=== PATIENT | female | born 1955 | race African-American/Black ===

== ENCOUNTER 2017-07-23 21:35 | Inpatient (IN) | payer MEDICAID ==
[~2017-07-23] VITALS: Ht 162.6 cm; Wt 66.4 kg
[~2017-07-23 21:35] MED LIST: CALC0.5C10 PO; CALC667C PO; FAMO20TA8 PO; Midodrine Hcl PO
[2017-07-23] MEDS ORDERED: ONDANSETRON HCL 4MG/2ML VIAL IV STA (23:32)
[2017-07-24 00:44] LABS: HEMATOCRIT. 33.7 % (36.0-48.0); HEMOGLOBIN. 10.9 g/dL (12.0-16.0); MEAN CORPUSCULAR HEMOGLOBIN 30.2 pg (28.0-32.0); MEAN CORPUSCULAR VOLUME 93.8 fL (81.0-99.0); MEAN PLATELET VOLUME 8.1 fl (7.4-10.4); PLATELET 186 x1000/uL (130-400); RED BLOOD CELL COUNT 3.59 mill/uL (4.2-5.4); RED CELL DISTRIBUTION WIDTH 15.4 % (11.6-14.6)
[2017-07-24 00:48] LABS: CHLORIDE 111 mEq/L (98-107)
[2017-07-24 00:58] LABS: CARBON DIOXIDE 23 mEq/L (21-32)
[2017-07-24] MEDS ORDERED: METOCLOPRAMIDE HCL 10MG/2ML VIAL IV ONE (01:30)
[2017-07-24 02:40] LABS: PLATELET ESTIMATE NORMAL
[2017-07-24 08:30] VITALS: BP 180/77
[2017-07-24] MEDS ORDERED: DEXTROSE 50% WATER 50ML SYRINGE IV PRN (09:15)
[2017-07-24] MEDS: ONDANSETRON HCL 4MG/2ML VIAL IV PRN (09:36)
[2017-07-24 09:54] VITALS: BP 180/77
[2017-07-24] MEDS: INSULIN LISPRO 100 UNITS/ML SUBCUT SCH ×3 (11:53→21:00)
[2017-07-24] MEDS: BLOOD SUGAR DIAGNOSTIC STRIP TEST SCH ×3 (11:53→21:00)
[2017-07-24 12:00] VITALS: BP 163/64
[2017-07-24 12:13] LABS: HEMATOCRIT 32.6 % (36.0-48.0); HEMOGLOBIN 10.8 g/dL (12.0-16.0); MEAN CORPUSCULAR HEMOGLOBIN 31.4 pg (28.0-32.0); MEAN CORPUSCULAR VOLUME 94.6 fL (81.0-99.0); PLATELET 185 x1000/uL (130-400); RED BLOOD CELL COUNT 3.44 mill/uL (4.2-5.4); RED CELL DISTRIBUTION WIDTH 15.9 % (11.6-14.6)
[2017-07-24 16:00] VITALS: BP 127/61
[2017-07-24 20:00] VITALS: BP 122/59
[2017-07-25] VITALS: BP 159/65
[2017-07-25 04:00] VITALS: BP 156/75
[2017-07-25] MEDS: BLOOD SUGAR DIAGNOSTIC STRIP TEST SCH ×4 (06:33→20:49)
[2017-07-25 06:58] LABS: BASOPHILS % 0.1 % (0.0-2.0); HEMATOCRIT. 32.7 % (36.0-48.0); HEMOGLOBIN. 11.1 g/dL (12.0-16.0); LYMPHOCYTES % 8.5 % (20.0-50.0); MEAN CORPUSCULAR HEMOGLOBIN 31.5 pg (28.0-32.0); MEAN CORPUSCULAR VOLUME 93.1 fL (81.0-99.0); MEAN PLATELET VOLUME 8.3 fl (7.4-10.4); MONOCYTES % 5.7 % (2.0-8.0); NEUTROPHILS % 85.7 % (40.0-76.0); PLATELET 191 x1000/uL (130-400); RED BLOOD CELL COUNT 3.52 mill/uL (4.2-5.4); RED CELL DISTRIBUTION WIDTH 15.3 % (11.6-14.6)
[2017-07-25] MEDS: INSULIN LISPRO 100 UNITS/ML SUBCUT SCH ×4 (07:50→20:49)
[2017-07-25 08:10] VITALS: BP 155/67
[2017-07-25] MEDS ORDERED: FAMOTIDINE 20MG TABLET PO SCH (09:00)
[2017-07-25] MEDS: CALCIUM ACETATE 667MG CAPSULE PO SCH ×4 (09:12→17:25)
[2017-07-25] MEDS: ONDANSETRON HCL 4MG/2ML VIAL IV PRN (09:12)
[2017-07-25 12:00] VITALS: BP 138/68
[2017-07-25] MEDS: METOCLOPRAMIDE HCL 10MG/2ML VIAL IV SCH ×3 (12:46→23:34)
[2017-07-25 16:00] VITALS: BP 135/61
[2017-07-25] MEDS: SUCRALFATE 1 G/10 ML UDC PO SCH ×2 (17:51→20:50)
[2017-07-25 20:42] VITALS: BP 111/72
[2017-07-25] MEDS: PANTOPRAZOLE SODIUM 40 MG/VIAL IV SCH (20:50)
[2017-07-26 00:34] VITALS: BP 113/56
[2017-07-26 04:00] VITALS: BP 108/66
[2017-07-26] MEDS: METOCLOPRAMIDE HCL 10MG/2ML VIAL IV SCH ×3 (05:50→18:00)
[2017-07-26] MEDS: SUCRALFATE 1 G/10 ML UDC PO SCH ×4 (05:50→21:56)
[2017-07-26 06:21] LABS: BASOPHILS % 0.2 % (0.0-2.0); EOSINOPHILS % 0.1 % (0.0-5.0); HEMATOCRIT. 33.7 % (36.0-48.0); HEMOGLOBIN. 11.2 g/dL (12.0-16.0); LYMPHOCYTES % 16.2 % (20.0-50.0); MEAN CORPUSCULAR VOLUME 93.2 fL (81.0-99.0); MONOCYTES % 8.1 % (2.0-8.0); NEUTROPHILS % 75.4 % (40.0-76.0); PLATELET 182 x1000/uL (130-400); RED BLOOD CELL COUNT 3.61 mill/uL (4.2-5.4)
[2017-07-26 06:27] LABS: INR 1.1; PARTIAL THROMBOPLASTIN TIME 27.4 sec (23.4-31.0); PROTHROMBIN TIME 11.3 sec (9.4-11.6)
[2017-07-26] MEDS: BLOOD SUGAR DIAGNOSTIC STRIP TEST SCH ×4 (07:20→21:00)
[2017-07-26 07:28] VITALS: BP 134/74
[2017-07-26] MEDS: INSULIN LISPRO 100 UNITS/ML SUBCUT SCH ×4 (07:50→21:00)
[2017-07-26] MEDS: CALCIUM ACETATE 667MG CAPSULE PO SCH ×4 (07:50→16:46)
[2017-07-26] MEDS: PANTOPRAZOLE SODIUM 40 MG/VIAL IV SCH ×2 (08:31→21:56)
[2017-07-26 11:24] VITALS: BP 154/61
[2017-07-26 15:48] VITALS: BP 103/64
[2017-07-26 20:00] VITALS: BP 110/51
[2017-07-27] VITALS: BP_SYST 123; BP_SYST 135; BP_SYST 98; BP_DIAS 59; BP_DIAS 64; BP_DIAS 97
[2017-07-27 04:00] VITALS: BP 104/62
[2017-07-27] MEDS: METOCLOPRAMIDE HCL 10MG/2ML VIAL IV SCH ×2 (06:00)
[2017-07-27] MEDS: SUCRALFATE 1 G/10 ML UDC PO SCH (06:58)
[2017-07-27] MEDS: BLOOD SUGAR DIAGNOSTIC STRIP TEST SCH (06:58)
[2017-07-27 07:20] LABS: BASOPHILS % 0.2 % (0.0-2.0); EOSINOPHILS % 0.5 % (0.0-5.0); HEMATOCRIT. 33.8 % (36.0-48.0); LYMPHOCYTES % 23.7 % (20.0-50.0); MEAN CORPUSCULAR HEMOGLOBIN 30.2 pg (28.0-32.0); MEAN CORPUSCULAR VOLUME 92.5 fL (81.0-99.0); MEAN PLATELET VOLUME 7.9 fl (7.4-10.4); MONOCYTES % 12.3 % (2.0-8.0); NEUTROPHILS % 63.3 % (40.0-76.0); PLATELET 170 x1000/uL (130-400); RED BLOOD CELL COUNT 3.65 mill/uL (4.2-5.4); RED CELL DISTRIBUTION WIDTH 15.1 % (11.6-14.6)
[2017-07-27] MEDS: INSULIN LISPRO 100 UNITS/ML SUBCUT SCH (07:35)
[2017-07-27 07:45] VITALS: BP 146/54
[2017-07-27] MEDS: CALCIUM ACETATE 667MG CAPSULE PO SCH (08:31)
[2017-07-27] MEDS: PANTOPRAZOLE SODIUM 40 MG/VIAL IV SCH (08:31)
[2017-07-27 10:17] VITALS: BP 146/54
== END 2017-07-27 11:15 | disposition home or self-care (01) | DRG 241 ==
LOC: ER 22:44 → 6WST 07-24 05:14 → ENRESERV 07-24 07:27
PROVIDERS: ADMIT Internal Medicine; ATTEND Internal Medicine
PROC: 5A1D70Z Performance of Urinary Filtration, Intermittent, Less than 6 Hours Per Day (ICD-10-PCS; 2017-07-24)
PROC: 5A1D70Z Performance of Urinary Filtration, Intermittent, Less than 6 Hours Per Day (ICD-10-PCS; principal; 2017-07-25)
PROC: 5A1D70Z Performance of Urinary Filtration, Intermittent, Less than 6 Hours Per Day (ICD-10-PCS; 2017-07-26)
DX: K29.70 Gastritis, unspecified, without bleeding (principal); E11.22 Type 2 diabetes mellitus with diabetic chronic kidney disease; I12.0 Hypertensive chronic kidney disease with stage 5 chronic kidney disease or end stage renal disease; N18.6 End stage renal disease; R65.10 Systemic inflammatory response syndrome (SIRS) of non-infectious origin without acute organ dysfunction; Z53.29 Procedure and treatment not carried out because of patient's decision for other reasons; D63.8 Anemia in other chronic diseases classified elsewhere; E78.00 Pure hypercholesterolemia, unspecified; R10.9 Unspecified abdominal pain; Z79.899 Other long term (current) drug therapy; Z99.2 Dependence on renal dialysis; E83.51 Hypocalcemia; E87.8 Other disorders of electrolyte and fluid balance, not elsewhere classified
CPT/HCPCS: 36415; 76705; 80048; 80053; 82270; 82728; 82962; 83540; 83550; 83690; 85025; 85027; 85610; 85730; 89055; 93005; 93970; 96374; 96375; 99285; C9113; J2405; J2765; J7030

== ENCOUNTER 2018-07-15 14:08 | Inpatient (IN) | payer MEDICAID ==
[~2018-07-15] VITALS: Ht 162.6 cm; Wt 64.4 kg
[2018-07-15] MEDS ORDERED: SODIUM CHLORIDE 0.9% 250 ML IV ONE (14:41)
[2018-07-15] MEDS ORDERED: FENTANYL CITRATE/PF 50MCG/ML 2ML VIAL IV ONE (14:45)
[2018-07-15] MEDS ORDERED: ONDANSETRON HCL 4MG/2ML INJ IV ONE (14:45)
[2018-07-15 15:23] LABS: BASOPHILS % 0.2 % (0.0-2.0); EOSINOPHILS % 0.9 % (0.0-5.0); HEMATOCRIT. 32.7 % (36.0-48.0); LYMPHOCYTES % 25.1 % (20.0-50.0); MEAN CORPUSCULAR HEMOGLOBIN 31.2 pg (28.0-32.0); MEAN PLATELET VOLUME 8.8 fl (7.4-10.4); MONOCYTES % 10.3 % (2.0-8.0); NEUTROPHILS % 63.5 % (40.0-76.0); PLATELET 160 x1000/uL (130-400); RED BLOOD CELL COUNT 3.52 mill/uL (4.2-5.4); RED CELL DISTRIBUTION WIDTH 13.9 % (11.6-14.6)
[2018-07-15 15:27] LABS: CHLORIDE 102 mEq/L (98-107); PARTIAL THROMBOPLASTIN TIME 27.8 sec (23.4-31.0)
[2018-07-15] MEDS ORDERED: IOHEXOL-300 100 ML BOTTLE ONE (16:54)
[2018-07-15] MEDS ORDERED: HYDRALAZINE 20MG/ML VIAL IV ONE (18:00)
[2018-07-15 21:50] VITALS: BP 178/71
[2018-07-15] MEDS ORDERED: MORPHINE SULFATE 10MG/5ML ORAL SOLN UDC PO PRN (23:00)
[2018-07-15] MEDS ORDERED: DEXTROSE 50% WATER 50ML SYRINGE IV PRN (23:00)
[2018-07-15] MEDS ORDERED: HYDROCODONE/ACETAMINOPHEN 5/325MG TABLET PO PRN ×2 (23:30)
[2018-07-15] MEDS: HYDRALAZINE 20MG/ML VIAL IV PRN (23:38)
[2018-07-16] VITALS (8 sets, daily range): BP systolic 111–182; BP diastolic 41–76
[2018-07-16 00:32] LABS: CREATINE KINASE MB FRACTION 1.5 ng/mL (0.5-3.6)
[2018-07-16] MEDS: BLOOD SUGAR DIAGNOSTIC STRIP TEST SCH ×4 (06:46→21:02)
[2018-07-16] MEDS: INSULIN LISPRO 100 UNITS/ML SUBCUT SCH ×5 (06:47→21:00)
[2018-07-16] MEDS: CALCITRIOL 0.25MCG CAPSULE PO SCH (08:32)
[2018-07-16] MEDS: HEPARIN 5000 UNITS/ML VIAL SUBCUT SCH ×2 (08:36→21:02)
[2018-07-16] MEDS ORDERED: CALCITRIOL 0.5 MCG PO SCH (09:00)
[2018-07-16 10:15] LABS: HEMATOCRIT 32.2 % (36.0-48.0); HEMOGLOBIN 10.7 g/dL (12.0-16.0); MEAN CORPUSCULAR HEMOGLOBIN 31.5 pg (28.0-32.0); MEAN CORPUSCULAR VOLUME 94.4 fL (81.0-99.0); PLATELET 162 x1000/uL (130-400); RED BLOOD CELL COUNT 3.41 mill/uL (4.2-5.4)
[2018-07-16 11:04] LABS: CREATINE KINASE MB FRACTION 1.4 ng/mL (0.5-3.6)
[2018-07-16] MEDS: HYDRALAZINE 20MG/ML VIAL IV PRN (12:10)
[2018-07-16] MEDS: ONDANSETRON HCL 4MG/2ML INJ IV PRN ×2 (12:10→18:19)
[2018-07-16] MEDS: DEXT 5%/0.45% NACL 1000ML 1,000 ML IV SCH (18:42)
[2018-07-16] MEDS: PANTOPRAZOLE SODIUM 40 MG/VIAL IV SCH ×2 (21:00→23:01)
[2018-07-17 00:30] VITALS: BP 156/55
[2018-07-17 04:00] VITALS: BP 160/64
[2018-07-17] MEDS: BLOOD SUGAR DIAGNOSTIC STRIP TEST SCH ×4 (06:31→20:37)
[2018-07-17] MEDS: INSULIN LISPRO 100 UNITS/ML SUBCUT SCH ×4 (07:42→21:00)
[2018-07-17 08:55] VITALS: BP 166/65
[2018-07-17] MEDS: CALCITRIOL 0.25MCG CAPSULE PO SCH (09:00)
[2018-07-17 12:41] VITALS: BP 182/76
[2018-07-17] MEDS: ASPIRIN 81MG EC TABLET PO SCH ×2 (13:30→17:00)
[2018-07-17] MEDS: ONDANSETRON HCL 4MG/2ML INJ IV PRN (14:47)
[2018-07-17 16:00] VITALS: BP_SYST 125; BP_SYST 166; BP_SYST 169; BP_DIAS 71; BP_DIAS 73; BP_DIAS 83
[2018-07-17] MEDS ORDERED: LEVOFLOXACIN 500MG PREMIX 100 ML IV SCH (16:00)
[2018-07-17] MEDS: METOCLOPRAMIDE HCL 10MG/2ML VIAL IV SCH (17:14)
[2018-07-17 20:00] VITALS: BP_SYST 139; BP_SYST 140; BP_SYST 145; BP_DIAS 47; BP_DIAS 50; BP_DIAS 56
[2018-07-17 22:01] LABS: BASOPHILS % 0.2 % (0.0-2.0); HEMATOCRIT. 30.7 % (36.0-48.0); HEMOGLOBIN. 10.1 g/dL (12.0-16.0); MEAN CORPUSCULAR VOLUME 94.8 fL (81.0-99.0); MEAN PLATELET VOLUME 9.1 fl (7.4-10.4); MONOCYTES % 8.2 % (2.0-8.0); NEUTROPHILS % 75.6 % (40.0-76.0); PLATELET 173 x1000/uL (130-400); RED BLOOD CELL COUNT 3.24 mill/uL (4.2-5.4); RED CELL DISTRIBUTION WIDTH 14.1 % (11.6-14.6)
[2018-07-17 22:08] LABS: CHLORIDE 104 mEq/L (98-107)
[2018-07-17 22:12] LABS: ETHANOL BLOOD < 10 mg/dL
[2018-07-17] MEDS: METRONIDAZOLE 500 MG PREMIX 100 ML IV SCH (22:58)
[2018-07-17] MEDS: DEXT 5%/0.45% NACL 1000ML 1,000 ML IV SCH (23:01)
[2018-07-18] VITALS (7 sets, daily range): BP systolic 138–170; BP diastolic 56–103
[2018-07-18] MEDS: METOCLOPRAMIDE HCL 10MG/2ML VIAL IV SCH ×4 (00:38→18:35)
[2018-07-18] MEDS: DEXT 5%/0.45% NACL 1000ML 1,000 ML IV SCH ×3 (04:01→21:44)
[2018-07-18] MEDS: BLOOD SUGAR DIAGNOSTIC STRIP TEST SCH ×4 (06:21→21:00)
[2018-07-18] MEDS: CLONIDINE 0.1MG TABLET PO PRN ×2 (06:40→13:41)
[2018-07-18] MEDS: INSULIN LISPRO 100 UNITS/ML SUBCUT SCH ×4 (07:50→21:43)
[2018-07-18] MEDS: PANTOPRAZOLE SODIUM 40 MG/VIAL IV SCH (09:00)
[2018-07-18] MEDS: CALCITRIOL 0.25MCG CAPSULE PO SCH (09:36)
[2018-07-18] MEDS: ASPIRIN 81MG EC TABLET PO SCH ×2 (09:37→17:00)
[2018-07-18] MEDS: METRONIDAZOLE 500 MG PREMIX 100 ML IV SCH ×2 (11:14→22:06)
[2018-07-18] MEDS: DOCUSATE SODIUM 250MG CAPSULE PO SCH (17:00)
[2018-07-18 20:28] LABS: BASOPHILS % 0.3 % (0.0-2.0); EOSINOPHILS % 0.6 % (0.0-5.0); HEMATOCRIT. 31.3 % (36.0-48.0); HEMOGLOBIN. 10.3 g/dL (12.0-16.0); LYMPHOCYTES % 20.3 % (20.0-50.0); MEAN CORPUSCULAR VOLUME 94.6 fL (81.0-99.0); MEAN PLATELET VOLUME 8.7 fl (7.4-10.4); MONOCYTES % 8.6 % (2.0-8.0); NEUTROPHILS % 70.2 % (40.0-76.0); PLATELET 182 x1000/uL (130-400); RED BLOOD CELL COUNT 3.31 mill/uL (4.2-5.4); RED CELL DISTRIBUTION WIDTH 13.6 % (11.6-14.6)
[2018-07-18 20:31] LABS: CHLORIDE 103 mEq/L (98-107)
[2018-07-18 20:41] LABS: LDL CHOLESTEROL 92 mg/dL (5-100)
[2018-07-18 20:42] LABS: CREATINE KINASE 56 IU/L (26-192); CREATINE KINASE MB FRACTION < 1.0 ng/mL (0.5-3.6); HDL CHOLESTEROL 52 mg/dL (40-59)
[2018-07-18 21:02] LABS: *COCAINE SCREEN URINE NEGATIVE (NEGATIVE)
[2018-07-18 21:03] LABS: *BARBITURATES SCREEN URINE NEGATIVE (NEGATIVE); *BENZODIAZEPINES SCREEN URINE NEGATIVE (NEGATIVE); CANNABINOID URINE SCREEN NEGATIVE (NEGATIVE); METHADONE URINE SCREEN NEGATIVE (NEGATIVE); OPIATES URINE SCREEN NEGATIVE (NEGATIVE); PHENCYCLIDINE URINE SCREEN NEGATIVE (NEGATIVE)
[2018-07-18 21:04] LABS: *AMPHETAMINES SCREEN URINE NEGATIVE (NEGATIVE)
[2018-07-19] VITALS (7 sets, daily range): BP systolic 117–164; BP diastolic 57–76
[2018-07-19] MEDS: METOCLOPRAMIDE HCL 10MG/2ML VIAL IV SCH ×3 (00:06→12:31)
[2018-07-19] MEDS: BLOOD SUGAR DIAGNOSTIC STRIP TEST SCH ×2 (07:20→12:31)
[2018-07-19] MEDS: INSULIN LISPRO 100 UNITS/ML SUBCUT SCH ×2 (07:50→12:34)
[2018-07-19] MEDS: PANTOPRAZOLE SODIUM 40 MG/VIAL IV SCH (08:21)
[2018-07-19] MEDS: METRONIDAZOLE 500 MG PREMIX 100 ML IV SCH (08:21)
[2018-07-19] MEDS: DOCUSATE SODIUM 250MG CAPSULE PO SCH (08:22)
[2018-07-19] MEDS: CALCITRIOL 0.25MCG CAPSULE PO SCH (08:22)
[2018-07-19] MEDS: ASPIRIN 81MG EC TABLET PO SCH (08:22)
[2018-07-23 17:08] LABS: BARBITURATE SCREEN Negative ug/mL (Cutoff:0.1); BENZODIAZEPINE SCREEN Negative ng/mL (Cutoff:20); OPIATES SCREEN Negative ng/mL (Cutoff:5); PHENCYCLIDINE SCREEN Negative ng/mL (Cutoff:8)
== END 2018-07-19 15:50 | disposition home or self-care (01) | DRG 48 ==
LOC: ER 14:08 → 6WST 18:12 → ENRESERV 18:57 → 6WST 21:44
PROVIDERS: ADMIT Internal Medicine; ATTEND Internal Medicine
PROC: 4A00X4Z Measurement of Central Nervous Electrical Activity, External Approach (ICD-10-PCS; principal; 2018-07-17)
DX: G90.8 Other disorders of autonomic nervous system (principal); E11.22 Type 2 diabetes mellitus with diabetic chronic kidney disease; I13.11 Hypertensive heart and chronic kidney disease without heart failure, with stage 5 chronic kidney disease, or end stage renal disease; I31.3 Pericardial effusion (noninflammatory); E44.1 Mild protein-calorie malnutrition; N18.6 End stage renal disease; K52.9 Noninfective gastroenteritis and colitis, unspecified; K57.90 Diverticulosis of intestine, part unspecified, without perforation or abscess without bleeding; D63.1 Anemia in chronic kidney disease; I25.10 Atherosclerotic heart disease of native coronary artery without angina pectoris; K21.9 Gastro-esophageal reflux disease without esophagitis; Z99.2 Dependence on renal dialysis; V89.2XXA Person injured in unspecified motor-vehicle accident, traffic, initial encounter; Y92.410 Unspecified street and highway as the place of occurrence of the external cause; V47.5XXA Car driver injured in collision with fixed or stationary object in traffic accident, initial encounter; Y93.89 Activity, other specified; Y92.89 Other specified places as the place of occurrence of the external cause; Y99.8 Other external cause status; Z68.28 Body mass index [BMI] 28.0-28.9, adult
CPT/HCPCS: 36415; 70544; 70553; 71045; 71260; 74176; 80048; 80061; 80305; 80307; 82270; 82550; 82553; 82962; 83735; 83880; 84443; 84484; 85027; 85379; 86850; 86900; 87015; 87045; 87427; 87449; 89055; 93005; 93306; 93880; 93970; 96374; 96375; 97162; 97166; 99291; C1893; C9113; G0482; J0360; J1644; J1815; J1956; J2405; J2765; J3010; J3490; J7050; Q9967

== ENCOUNTER 2018-07-24 12:17 | Inpatient (IN) | payer MEDICAID ==
[~2018-07-24] VITALS: Ht 162.6 cm; Wt 59.5 kg
[2018-07-24] MEDS ORDERED: ONDANSETRON HCL 4MG/2ML INJ IV STA (12:59)
[2018-07-24] MEDS ORDERED: HYDRALAZINE 20MG/ML VIAL IV ONE (13:00)
[2018-07-24 13:25] LABS: BASOPHILS % 0.3 % (0.0-2.0); EOSINOPHILS % 0.1 % (0.0-5.0); HEMATOCRIT. 38.6 % (36.0-48.0); HEMOGLOBIN. 12.9 g/dL (12.0-16.0); LYMPHOCYTES % 11.5 % (20.0-50.0); MEAN CORPUSCULAR HEMOGLOBIN 30.9 pg (28.0-32.0); MEAN CORPUSCULAR VOLUME 92.4 fL (81.0-99.0); MEAN PLATELET VOLUME 8.5 fl (7.4-10.4); MONOCYTES % 7.2 % (2.0-8.0); NEUTROPHILS % 80.9 % (40.0-76.0); PLATELET 201 x1000/uL (130-400); RED BLOOD CELL COUNT 4.18 mill/uL (4.2-5.4); RED CELL DISTRIBUTION WIDTH 13.4 % (11.6-14.6)
[2018-07-24 13:32] LABS: CHLORIDE 96 mEq/L (98-107)
[2018-07-24 13:33] LABS: PROTHROMBIN TIME 10.2 sec (9.1-11.1)
[2018-07-24] MEDS ORDERED: IBUPROFEN 600MG TABLET PO PRN (16:30)
[2018-07-24 18:20] VITALS: BP 217/103
[2018-07-24] MEDS ORDERED: HYDRALAZINE 20MG/ML VIAL IV PRN (19:30)
[2018-07-24 20:00] VITALS: BP 187/64
[2018-07-24] MEDS: PANTOPRAZOLE SODIUM 40 MG/VIAL IV SCH (20:52)
[2018-07-24] MEDS: DEXT 5%/0.45% NACL KCL 20MEQ/L 1,000 ML IV SCH (20:52)
[2018-07-25] VITALS: BP 98/41
[2018-07-25] MEDS: DEXT 5%/0.45% NACL KCL 20MEQ/L 1,000 ML IV SCH (03:35)
[2018-07-25 04:00] VITALS: BP 122/49
[2018-07-25] MEDS: ONDANSETRON HCL 4MG/2ML INJ IV PRN ×2 (06:18→12:20)
[2018-07-25 08:00] VITALS: BP 157/57
[2018-07-25] MEDS: PANTOPRAZOLE SODIUM 40 MG/VIAL IV SCH ×2 (09:13→21:27)
[2018-07-25] MEDS: INSULIN LISPRO 100 UNITS/ML SUBCUT SCH ×4 (09:26→21:00)
[2018-07-25] MEDS: BLOOD SUGAR DIAGNOSTIC STRIP TEST SCH ×4 (09:26→21:27)
[2018-07-25] MEDS ORDERED: DEXTROSE 50% WATER 50ML SYRINGE IV PRN (09:30)
[2018-07-25 11:00] VITALS: BP 175/67
[2018-07-25 15:23] LABS: HEMATOCRIT 35.8 % (36.0-48.0); HEMOGLOBIN 11.8 g/dL (12.0-16.0)
[2018-07-25 16:00] VITALS: BP 100/37
[2018-07-25] MEDS: NIFEDIPINE XL 60MG TAB PO SCH (18:24)
[2018-07-25 20:00] VITALS: BP 108/56
[2018-07-26] VITALS: BP 140/52
[2018-07-26 04:00] VITALS: BP 136/56
[2018-07-26 05:49] LABS: BASOPHILS % 0.2 % (0.0-2.0); EOSINOPHILS % 0.2 % (0.0-5.0); HEMATOCRIT. 37.2 % (36.0-48.0); HEMOGLOBIN. 12.3 g/dL (12.0-16.0); LYMPHOCYTES % 17.9 % (20.0-50.0); MEAN CORPUSCULAR HEMOGLOBIN 30.9 pg (28.0-32.0); MEAN CORPUSCULAR VOLUME 93.6 fL (81.0-99.0); MEAN PLATELET VOLUME 8.6 fl (7.4-10.4); MONOCYTES % 9.4 % (2.0-8.0); NEUTROPHILS % 72.3 % (40.0-76.0); PLATELET 206 x1000/uL (130-400); RED BLOOD CELL COUNT 3.98 mill/uL (4.2-5.4); RED CELL DISTRIBUTION WIDTH 13.5 % (11.6-14.6)
[2018-07-26] MEDS: INSULIN LISPRO 100 UNITS/ML SUBCUT SCH ×4 (06:15→21:00)
[2018-07-26] MEDS: BLOOD SUGAR DIAGNOSTIC STRIP TEST SCH ×4 (06:15→20:04)
[2018-07-26 07:52] VITALS: BP 130/47
[2018-07-26] MEDS: NIFEDIPINE XL 60MG TAB PO SCH (08:32)
[2018-07-26] MEDS: PANTOPRAZOLE SODIUM 40 MG/VIAL IV SCH ×2 (08:32→20:39)
[2018-07-26 12:51] VITALS: BP 133/52
[2018-07-26 16:24] VITALS: BP 103/41
[2018-07-26 20:00] VITALS: BP 121/47
[2018-07-27] VITALS: BP 120/50
[2018-07-27 04:00] VITALS: BP 113/50
[2018-07-27] MEDS: BLOOD SUGAR DIAGNOSTIC STRIP TEST SCH ×3 (05:42→16:57)
[2018-07-27] MEDS: INSULIN LISPRO 100 UNITS/ML SUBCUT SCH ×2 (05:42→11:56)
[2018-07-27 08:24] VITALS: BP 164/59
[2018-07-27] MEDS: PANTOPRAZOLE SODIUM 40 MG/VIAL IV SCH (08:39)
[2018-07-27] MEDS: NIFEDIPINE XL 60MG TAB PO SCH (08:39)
[2018-07-27 11:56] VITALS: BP 128/47
[2018-07-27 16:30] VITALS: BP 106/56
[2018-07-27 17:08] VITALS: BP 106/65
== END 2018-07-27 17:48 | disposition home or self-care (01) | DRG 241 ==
LOC: ER 12:17 → EDBEDREQ 13:17 → EDBEDREQTM 13:17 → CANRESERV 15:21 → ENRESERV 15:21 → 8WST 18:14
PROVIDERS: ADMIT Internal Medicine; ATTEND Internal Medicine
DX: K29.00 Acute gastritis without bleeding (principal); E11.22 Type 2 diabetes mellitus with diabetic chronic kidney disease; E87.8 Other disorders of electrolyte and fluid balance, not elsewhere classified; E87.1 Hypo-osmolality and hyponatremia; D64.9 Anemia, unspecified; S29.9XXA Unspecified injury of thorax, initial encounter; I12.0 Hypertensive chronic kidney disease with stage 5 chronic kidney disease or end stage renal disease; N18.6 End stage renal disease; I16.0 Hypertensive urgency; Z79.899 Other long term (current) drug therapy; K52.9 Noninfective gastroenteritis and colitis, unspecified; Z99.2 Dependence on renal dialysis; V89.2XXA Person injured in unspecified motor-vehicle accident, traffic, initial encounter; Y93.89 Activity, other specified; Y92.89 Other specified places as the place of occurrence of the external cause; Y99.8 Other external cause status
CPT/HCPCS: 36415; 71045; 80048; 82270; 82962; 83880; 84484; 85014; 85018; 93005; 96374; 96375; 99285; C1893; C9113; J0360; J2405